=== PATIENT | male | born 1940 | race African-American/Black ===

== ENCOUNTER 2019-03-22 19:52 | Inpatient (IN) | payer MEDICARE, MEDICAID ==
[~2019-03-22] VITALS: Ht 165.1 cm; Wt 101.2 kg
[~2019-03-22 19:52] MED LIST: AMLO5TAB4 PO; FURO-152 PO; INSU3INS8 SQ; POTA10TA15 PO; ROSU20TA2 PO
[2019-03-22] MEDS ORDERED: MORPHINE SULFATE 4 MG/ML CPJ (NOT FOR IM USE) IV ONE (22:45)
[2019-03-22] MEDS ORDERED: VISCOUS LIDOCAINE 2% 15 ML UDC MM ONE (22:45)
[2019-03-22 23:06] LABS: BASOPHILS % 0.5 % (0.0-2.0); EOSINOPHILS % 0.2 % (0.0-5.0); HEMATOCRIT. 40.7 % (42.0-52.0); HEMOGLOBIN. 12.9 g/dL (14.0-18.0); LYMPHOCYTES % 8.2 % (20.0-50.0); MEAN CORPUSCULAR VOLUME 75.8 fL (80.0-94.0); MEAN PLATELET VOLUME 8.6 fl (7.4-10.4); MONOCYTES % 7.1 % (2.0-8.0); PLATELET 174 x1000/uL (130-400); RED BLOOD CELL COUNT 5.37 mill/uL (4.7-6.1); RED CELL DISTRIBUTION WIDTH 13.5 % (11.6-14.6)
[2019-03-22 23:11] LABS: CHLORIDE 110 mEq/L (98-107)
[2019-03-22 23:15] LABS: PROTHROMBIN TIME 10.6 sec (9.6-11.0)
[2019-03-22] MEDS ORDERED: NA PHOS,M-B/NA PHOS,DI-BA ENEMA 118ML PR ONE (23:30)
[2019-03-22] MEDS ORDERED: METRONIDAZOLE 500 MG PREMIX 100 ML IV SCH (23:45)
[2019-03-22] MEDS ORDERED: LEVOFLOXACIN 750MG PREMIX 150 ML IV SCH (23:45)
[2019-03-23] MEDS ORDERED: BISACODYL 10MG SUPP PR ONE (04:15)
[2019-03-23 04:25] LABS: CLARITY URINE CLEAR (CLEAR); COLOR URINE YELLOW (YELLOW); KETONES URINE NEGATIVE (NEGATIVE); LEUKOCYTE ESTERASE URINE NEGATIVE (NEGATIVE); NITRITE URINE NEGATIVE (NEGATIVE); OCCULT BLOOD URINE NEGATIVE (NEGATIVE); PH URINE 7.5 (4.5-8.0); PROTEIN URINE 3+ (NEGATIVE); SPECIFIC GRAVITY URINE 1.014 (1.005-1.030); UROBILINOGEN URINE 0.2 E.U./dL (0.2-1.0)
[2019-03-23] MEDS ORDERED: CLONIDINE 0.1MG TABLET PO SCH (04:30)
[2019-03-23] MEDS ORDERED: DEXTROSE 50% WATER 50ML SYRINGE IV PRN (05:30)
[2019-03-23] MEDS ORDERED: MAGNESIUM HYDROXIDE 400MG/5ML 30ML UDC PO PRN (05:30)
[2019-03-23] MEDS ORDERED: ENOXAPARIN 40MG/0.4ML SYR SUBCUT SCH (05:30)
[2019-03-23] MEDS ORDERED: GUAIFENESIN 200MG/10ML SUGAR FREE UDC PO PRN (05:30)
[2019-03-23] MEDS: SODIUM CHLORIDE 0.9% 1,000 ML IV SCH ×2 (05:40→16:00)
[2019-03-23] MEDS: LACTULOSE 20G/30ML UDC PO SCH ×3 (05:40→23:10)
[2019-03-23] MEDS: INSULIN LISPRO 100 UNITS/ML SUBCUT SCH ×3 (08:20→20:31)
[2019-03-23] MEDS: BLOOD SUGAR DIAGNOSTIC STRIP TEST SCH ×4 (09:00→20:27)
[2019-03-23] MEDS: AMLODIPINE 5MG TABLET PO SCH ×2 (10:21→20:27)
[2019-03-23 13:18] VITALS: BP 156/62
[2019-03-23] MEDS: ENOXAPARIN 40MG/0.4ML SYR SUBCUT SCH (15:22)
[2019-03-23 20:00] VITALS: BP 153/75
[2019-03-23] MEDS: ACETAMINOPHEN 325MG TABLET PO PRN (20:27)
[2019-03-23] MEDS ORDERED: SENNOSIDES 8.6MG TABLET PO PRN (21:00)
[2019-03-24] VITALS: BP 180/87
[2019-03-24] MEDS ORDERED: SODIUM POLYSTYRENE SULFONATE 15 G/60 ML BOT PO SCH
[2019-03-24] MEDS: CLONIDINE 0.1MG TABLET PO PRN ×2 (00:56→14:03)
[2019-03-24] MEDS: SODIUM CHLORIDE 0.9% 1,000 ML IV SCH ×3 (00:56→21:42)
[2019-03-24 04:00] VITALS: BP 117/66
[2019-03-24] MEDS: LACTULOSE 20G/30ML UDC PO SCH ×3 (05:55→21:41)
[2019-03-24] MEDS: BLOOD SUGAR DIAGNOSTIC STRIP TEST SCH ×4 (07:31→21:28)
[2019-03-24 08:00] VITALS: BP 132/51
[2019-03-24] MEDS: AMLODIPINE 5MG TABLET PO SCH ×2 (09:10→20:40)
[2019-03-24] MEDS: DIPHENHYDRAMINE 50MG/ML VIAL IV PRN (09:10)
[2019-03-24] MEDS: MAGNESIUM/ALUMINUM HYDROXIDE/SIMETHICONE 30ML UDC PO PRN (09:10)
[2019-03-24 09:11] LABS: HEMATOCRIT. 38.7 % (42.0-52.0); MEAN CORPUSCULAR HEMOGLOBIN 23.9 pg (28.0-32.0); MEAN CORPUSCULAR VOLUME 76.6 fL (80.0-94.0); MEAN PLATELET VOLUME 8.8 fl (7.4-10.4); PLATELET 156 x1000/uL (130-400); RED BLOOD CELL COUNT 5.05 mill/uL (4.7-6.1); RED CELL DISTRIBUTION WIDTH 13.1 % (11.6-14.6)
[2019-03-24 09:16] LABS: PHOSPHORUS 3.4 mg/dL (2.5-4.9)
[2019-03-24] MEDS: INSULIN LISPRO 100 UNITS/ML SUBCUT SCH ×4 (09:20→21:37)
[2019-03-24 12:00] VITALS: BP 105/53
[2019-03-24] MEDS: ENOXAPARIN 40MG/0.4ML SYR SUBCUT SCH (14:04)
[2019-03-24 16:00] VITALS: BP 141/60
[2019-03-24 20:00] VITALS: BP 120/63
[2019-03-24] MEDS: ACETAMINOPHEN 325MG TABLET PO PRN (20:40)
[2019-03-25] VITALS: BP 110/63
[2019-03-25] MEDS: DIPHENHYDRAMINE 50MG/ML VIAL IV PRN (02:19)
[2019-03-25] MEDS: ACETAMINOPHEN 325MG TABLET PO PRN ×2 (02:19→06:23)
[2019-03-25] MEDS: MAGNESIUM/ALUMINUM HYDROXIDE/SIMETHICONE 30ML UDC PO PRN (02:27)
[2019-03-25 04:00] VITALS: BP 139/66
[2019-03-25] MEDS: LACTULOSE 20G/30ML UDC PO SCH ×3 (05:25→21:37)
[2019-03-25 06:07] LABS: BASOPHILS % 0.1 % (0.0-2.0); EOSINOPHILS % 1.2 % (0.0-5.0); HEMATOCRIT. 40.6 % (42.0-52.0); HEMOGLOBIN. 12.6 g/dL (14.0-18.0); LYMPHOCYTES % 11.7 % (20.0-50.0); MEAN CORPUSCULAR HEMOGLOBIN 23.7 pg (28.0-32.0); MEAN CORPUSCULAR VOLUME 76.2 fL (80.0-94.0); MEAN PLATELET VOLUME 9.4 fl (7.4-10.4); MONOCYTES % 8.5 % (2.0-8.0); NEUTROPHILS % 78.5 % (40.0-76.0); PLATELET 166 x1000/uL (130-400); RED BLOOD CELL COUNT 5.33 mill/uL (4.7-6.1); RED CELL DISTRIBUTION WIDTH 13.6 % (11.6-14.6)
[2019-03-25] MEDS: BLOOD SUGAR DIAGNOSTIC STRIP TEST SCH ×4 (06:29→21:37)
[2019-03-25 06:35] LABS: CHLORIDE 110 mEq/L (98-107)
[2019-03-25] MEDS: INSULIN LISPRO 100 UNITS/ML SUBCUT SCH ×4 (06:37→21:00)
[2019-03-25 06:44] LABS: PHOSPHORUS 4.3 mg/dL (2.5-4.9)
[2019-03-25 08:00] VITALS: BP 156/80
[2019-03-25] MEDS: AMLODIPINE 5MG TABLET PO SCH ×2 (08:23→21:35)
[2019-03-25] MEDS: SODIUM CHLORIDE 0.9% 1,000 ML IV SCH ×3 (08:23→23:32)
[2019-03-25] MEDS ORDERED: NASOI BOTHNSTRLS (09:45)
[2019-03-25] MEDS ORDERED: NEBI20TA2 MT (09:45)
[2019-03-25] MEDS ORDERED: LOSA1TAB34 MT (09:45)
[2019-03-25] MEDS ORDERED: INSU100I33 SQ (09:45)
[2019-03-25] MEDS ORDERED: VIT1TABL86 MT (09:45)
[2019-03-25] MEDS ORDERED: POTASSIUM CHLORIDE 20MEQ TABLET SR PO NR (11:30)
[2019-03-25 12:00] VITALS: BP 130/53
[2019-03-25] MEDS: ONDANSETRON HCL 4MG/2ML INJ IV PRN (12:16)
[2019-03-25] MEDS: ENOXAPARIN 40MG/0.4ML SYR SUBCUT SCH (13:43)
[2019-03-25] MEDS ORDERED: NA PHOS,M-B/NA PHOS,DI-BA ENEMA 118ML PR NR (14:45)
[2019-03-25 16:00] VITALS: BP 129/79
[2019-03-25] MEDS: PANTOPRAZOLE SODIUM 40 MG/VIAL IV SCH (16:50)
[2019-03-25 17:16] LABS: PLATELET ESTIMATE NORMAL
[2019-03-25 20:00] VITALS: BP 135/68
[2019-03-26] VITALS: BP 122/73
[2019-03-26 04:00] VITALS: BP 140/64
[2019-03-26] MEDS: LACTULOSE 20G/30ML UDC PO SCH ×3 (06:04→22:39)
[2019-03-26] MEDS: SODIUM CHLORIDE 0.9% 1,000 ML IV SCH ×2 (06:05→13:31)
[2019-03-26 06:12] LABS: BASOPHILS % 0.3 % (0.0-2.0); EOSINOPHILS % 0.5 % (0.0-5.0); HEMATOCRIT. 39.5 % (42.0-52.0); HEMOGLOBIN. 12.3 g/dL (14.0-18.0); LYMPHOCYTES % 7.4 % (20.0-50.0); MEAN CORPUSCULAR HEMOGLOBIN 23.9 pg (28.0-32.0); MEAN CORPUSCULAR VOLUME 76.3 fL (80.0-94.0); MEAN PLATELET VOLUME 8.9 fl (7.4-10.4); NEUTROPHILS % 85.8 % (40.0-76.0); PLATELET 185 x1000/uL (130-400); RED BLOOD CELL COUNT 5.17 mill/uL (4.7-6.1); RED CELL DISTRIBUTION WIDTH 13.5 % (11.6-14.6)
[2019-03-26 06:21] LABS: CHLORIDE 112 mEq/L (98-107)
[2019-03-26 06:39] LABS: PHOSPHORUS 4.7 mg/dL (2.5-4.9)
[2019-03-26 08:00] VITALS: BP 135/68
[2019-03-26] MEDS: AMLODIPINE 5MG TABLET PO SCH ×2 (09:00→22:39)
[2019-03-26] MEDS: PANTOPRAZOLE SODIUM 40 MG/VIAL IV SCH (09:01)
[2019-03-26] MEDS: INSULIN LISPRO 100 UNITS/ML SUBCUT SCH ×4 (09:12→21:00)
[2019-03-26 12:00] VITALS: BP 116/68
[2019-03-26] MEDS: BLOOD SUGAR DIAGNOSTIC STRIP TEST SCH ×3 (12:23→21:00)
[2019-03-26] MEDS: ENOXAPARIN 40MG/0.4ML SYR SUBCUT SCH (13:31)
[2019-03-26 16:00] VITALS: BP 127/63
[2019-03-26 20:00] VITALS: BP 135/63
[2019-03-27] VITALS: BP 135/69
[2019-03-27 04:00] VITALS: BP 143/77
[2019-03-27] MEDS: ONDANSETRON HCL 4MG/2ML INJ IV PRN (05:49)
[2019-03-27] MEDS: LACTULOSE 20G/30ML UDC PO SCH ×3 (05:57→21:30)
[2019-03-27 07:12] LABS: BASOPHILS % 0.2 % (0.0-2.0); EOSINOPHILS % 0.1 % (0.0-5.0); HEMATOCRIT. 39.2 % (42.0-52.0); HEMOGLOBIN. 12.3 g/dL (14.0-18.0); LYMPHOCYTES % 8.8 % (20.0-50.0); MEAN CORPUSCULAR HEMOGLOBIN 23.9 pg (28.0-32.0); MEAN CORPUSCULAR VOLUME 76.1 fL (80.0-94.0); MEAN PLATELET VOLUME 9.5 fl (7.4-10.4); MONOCYTES % 12.1 % (2.0-8.0); NEUTROPHILS % 78.8 % (40.0-76.0); PLATELET 220 x1000/uL (130-400); RED BLOOD CELL COUNT 5.16 mill/uL (4.7-6.1); RED CELL DISTRIBUTION WIDTH 13.3 % (11.6-14.6)
[2019-03-27] MEDS: BLOOD SUGAR DIAGNOSTIC STRIP TEST SCH ×4 (07:20→21:00)
[2019-03-27 08:00] VITALS: BP 140/53
[2019-03-27] MEDS: PANTOPRAZOLE SODIUM 40 MG/VIAL IV SCH (09:05)
[2019-03-27] MEDS: AMLODIPINE 5MG TABLET PO SCH ×2 (09:05→21:00)
[2019-03-27] MEDS: INSULIN LISPRO 100 UNITS/ML SUBCUT SCH ×4 (09:22→21:00)
[2019-03-27] MEDS ORDERED: NA PHOS,M-B/NA PHOS,DI-BA ENEMA 118ML PR ONE (11:30)
[2019-03-27 12:00] VITALS: BP 137/60
[2019-03-27] MEDS: ENOXAPARIN 40MG/0.4ML SYR SUBCUT SCH (13:01)
[2019-03-27] MEDS: SODIUM CHLORIDE 0.9% 1,000 ML IV SCH (13:03)
[2019-03-27 16:00] VITALS: BP 141/59
[2019-03-27] MEDS: BISACODYL 10MG SUPP PR PRN ×2 (18:59→22:57)
[2019-03-27 20:00] VITALS: BP 137/63
[2019-03-27] MEDS: POTASSIUM CHLORIDE INJ 10 MEQ in SODIUM CHLORIDE 0.9% 1,000 ML IV SCH (22:58)
[2019-03-28] VITALS: BP 98/50
[2019-03-28 04:00] VITALS: BP 105/59
[2019-03-28] MEDS: BISACODYL 10MG SUPP PR PRN (04:04)
[2019-03-28] MEDS: LACTULOSE 20G/30ML UDC PO SCH ×3 (05:34→21:34)
[2019-03-28] MEDS: BLOOD SUGAR DIAGNOSTIC STRIP TEST SCH ×4 (06:11→21:11)
[2019-03-28] MEDS: INSULIN LISPRO 100 UNITS/ML SUBCUT SCH ×4 (06:12→21:00)
[2019-03-28] MEDS: AMLODIPINE 5MG TABLET PO SCH ×2 (09:00→21:00)
[2019-03-28] MEDS: PANTOPRAZOLE SODIUM 40 MG/VIAL IV SCH (09:41)
[2019-03-28] MEDS: POTASSIUM CHLORIDE INJ 10 MEQ in SODIUM CHLORIDE 0.9% 1,000 ML IV SCH ×2 (09:43→21:13)
[2019-03-28] MEDS: ENOXAPARIN 40MG/0.4ML SYR SUBCUT SCH (13:57)
[2019-03-28] MEDS: BISACODYL 10MG SUPP PR SCH ×3 (17:30→23:29)
[2019-03-28 20:00] VITALS: BP 145/60
[2019-03-28] MEDS ORDERED: MINERAL OIL ENEMA 133ML PR NR (21:00)
[2019-03-29] VITALS: BP 116/60
[2019-03-29 04:00] VITALS: BP 104/67
[2019-03-29] MEDS: LACTULOSE 20G/30ML UDC PO SCH ×3 (06:00→23:56)
[2019-03-29] MEDS: BISACODYL 10MG SUPP PR SCH ×4 (06:41→17:23)
[2019-03-29] MEDS: POTASSIUM CHLORIDE INJ 10 MEQ in SODIUM CHLORIDE 0.9% 1,000 ML IV SCH ×2 (06:42→17:23)
[2019-03-29] MEDS: BLOOD SUGAR DIAGNOSTIC STRIP TEST SCH ×4 (06:43→21:15)
[2019-03-29] MEDS: INSULIN LISPRO 100 UNITS/ML SUBCUT SCH ×4 (06:45→21:00)
[2019-03-29 08:00] VITALS: BP 104/56
[2019-03-29] MEDS: AMLODIPINE 5MG TABLET PO SCH ×2 (09:00→21:00)
[2019-03-29] MEDS: PANTOPRAZOLE SODIUM 40 MG/VIAL IV SCH (09:22)
[2019-03-29 12:00] VITALS: BP 114/55
[2019-03-29] MEDS: ENOXAPARIN 40MG/0.4ML SYR SUBCUT SCH (13:27)
[2019-03-29 16:00] VITALS: BP 165/71
[2019-03-29] MEDS: SORBITOL 70% SOLN 30ML PO SCH ×2 (17:22→23:54)
[2019-03-29 20:00] VITALS: BP 174/94
[2019-03-29] MEDS ORDERED: POTASSIUM CHLORIDE INJ 20 MEQ in DEXT 5%/0.9% NACL 1,000 ML IV SCH (21:00)
[2019-03-30] VITALS: BP 108/53
[2019-03-30 04:00] VITALS: BP 145/64
[2019-03-30] MEDS: SORBITOL 70% SOLN 30ML PO SCH ×3 (05:51→21:48)
[2019-03-30] MEDS: BLOOD SUGAR DIAGNOSTIC STRIP TEST SCH ×4 (06:06→21:45)
[2019-03-30] MEDS: INSULIN LISPRO 100 UNITS/ML SUBCUT SCH ×4 (06:07→21:00)
[2019-03-30] MEDS: LACTULOSE 20G/30ML UDC PO SCH ×3 (06:07→21:46)
[2019-03-30 08:00] VITALS: BP 122/73
[2019-03-30] MEDS ORDERED: POTASSIUM CHLORIDE 20MEQ/PACKET PO ONE (08:15)
[2019-03-30] MEDS ORDERED: KCL 20MEQ/100ML PREMIX 100 ML IV SCH (09:00)
[2019-03-30] MEDS: PANTOPRAZOLE SODIUM 40 MG/VIAL IV SCH (09:49)
[2019-03-30] MEDS: AMLODIPINE 5MG TABLET PO SCH ×2 (09:51→21:44)
[2019-03-30 10:10] LABS: BASOPHILS % 0.2 % (0.0-2.0); EOSINOPHILS % 1.3 % (0.0-5.0); HEMATOCRIT. 38.7 % (42.0-52.0); HEMOGLOBIN. 12.5 g/dL (14.0-18.0); LYMPHOCYTES % 10.7 % (20.0-50.0); MEAN CORPUSCULAR HEMOGLOBIN 24.5 pg (28.0-32.0); MEAN CORPUSCULAR VOLUME 76.1 fL (80.0-94.0); MONOCYTES % 14.3 % (2.0-8.0); NEUTROPHILS % 73.5 % (40.0-76.0); PLATELET 216 x1000/uL (130-400); RED BLOOD CELL COUNT 5.09 mill/uL (4.7-6.1); RED CELL DISTRIBUTION WIDTH 14.1 % (11.6-14.6)
[2019-03-30 12:00] VITALS: BP 134/71
[2019-03-30] MEDS: ENOXAPARIN 40MG/0.4ML SYR SUBCUT SCH (14:21)
[2019-03-30 16:00] VITALS: BP 126/69
[2019-03-30 20:00] VITALS: BP 150/63
[2019-03-30] MEDS: DEXT 5% WATER + KCL 20MEQ/L 1,000 ML IV SCH (23:30)
[2019-03-31] VITALS: BP 133/68
[2019-03-31 04:00] VITALS: BP 133/70
[2019-03-31] MEDS: LACTULOSE 20G/30ML UDC PO SCH ×2 (06:13→13:38)
[2019-03-31] MEDS: SORBITOL 70% SOLN 30ML PO SCH ×2 (06:13→13:44)
[2019-03-31] MEDS: BLOOD SUGAR DIAGNOSTIC STRIP TEST SCH ×4 (06:13→20:51)
[2019-03-31] MEDS: KETOROLAC 30MG/ML VIAL IV PRN ×2 (07:06→12:41)
[2019-03-31 07:10] LABS: BASOPHILS % 0.3 % (0.0-2.0); EOSINOPHILS % 1.3 % (0.0-5.0); HEMATOCRIT. 41.9 % (42.0-52.0); HEMOGLOBIN. 13.1 g/dL (14.0-18.0); LYMPHOCYTES % 10.9 % (20.0-50.0); MEAN CORPUSCULAR HEMOGLOBIN 23.7 pg (28.0-32.0); MEAN CORPUSCULAR VOLUME 75.7 fL (80.0-94.0); MEAN PLATELET VOLUME 8.3 fl (7.4-10.4); MONOCYTES % 11.2 % (2.0-8.0); NEUTROPHILS % 76.3 % (40.0-76.0); PLATELET 231 x1000/uL (130-400); RED BLOOD CELL COUNT 5.54 mill/uL (4.7-6.1); RED CELL DISTRIBUTION WIDTH 13.9 % (11.6-14.6)
[2019-03-31] MEDS: INSULIN LISPRO 100 UNITS/ML SUBCUT SCH ×4 (07:50→21:00)
[2019-03-31] MEDS: AMLODIPINE 5MG TABLET PO SCH ×2 (09:00→20:50)
[2019-03-31] MEDS: PANTOPRAZOLE SODIUM 40 MG/VIAL IV SCH (09:45)
[2019-03-31] MEDS ORDERED: POTASSIUM CHLORIDE INJ 40 MEQ in DEXT 5% WATER 500 ML IV SCH (10:00)
[2019-03-31] MEDS: DEXT 5% WATER + KCL 20MEQ/L 1,000 ML IV SCH (10:05)
[2019-03-31] MEDS: DIPHENHYDRAMINE 50MG/ML VIAL IV PRN ×2 (12:42→22:20)
[2019-03-31] MEDS: ENOXAPARIN 40MG/0.4ML SYR SUBCUT SCH (13:39)
[2019-03-31 20:00] VITALS: BP 137/74
[2019-04-01] VITALS: BP 106/65
[2019-04-01] MEDS: KETOROLAC 30MG/ML VIAL IV PRN ×3 (00:46→15:39)
[2019-04-01] MEDS: DEXT 5% WATER + KCL 20MEQ/L 1,000 ML IV SCH (00:51)
[2019-04-01 04:00] VITALS: BP 127/70
[2019-04-01] MEDS: BLOOD SUGAR DIAGNOSTIC STRIP TEST SCH ×4 (06:20→21:43)
[2019-04-01 07:26] LABS: BASOPHILS % 0.4 % (0.0-2.0); HEMOGLOBIN. 12.6 g/dL (14.0-18.0); LYMPHOCYTES % 11.8 % (20.0-50.0); MEAN CORPUSCULAR HEMOGLOBIN 23.7 pg (28.0-32.0); MEAN PLATELET VOLUME 8.8 fl (7.4-10.4); MONOCYTES % 8.2 % (2.0-8.0); NEUTROPHILS % 75.6 % (40.0-76.0); PLATELET 231 x1000/uL (130-400); RED BLOOD CELL COUNT 5.33 mill/uL (4.7-6.1); RED CELL DISTRIBUTION WIDTH 14.1 % (11.6-14.6)
[2019-04-01 08:33] LABS: PHOSPHORUS 2.4 mg/dL (2.5-4.9)
[2019-04-01] MEDS: PANTOPRAZOLE SODIUM 40 MG/VIAL IV SCH (09:18)
[2019-04-01] MEDS: INSULIN LISPRO 100 UNITS/ML SUBCUT SCH ×4 (09:22→21:00)
[2019-04-01] MEDS: AMLODIPINE 5MG TABLET PO SCH ×2 (09:26→21:00)
[2019-04-01] MEDS ORDERED: POTASSIUM CHLORIDE INJ 60 MEQ in DEXT 5% WATER 500 ML IV NR (10:30)
[2019-04-01 12:00] VITALS: BP 124/79
[2019-04-01] MEDS ORDERED: DIATR MEGLU/DIATRIZOATE SOLN 120ML ONE (12:47)
[2019-04-01] MEDS: ENOXAPARIN 40MG/0.4ML SYR SUBCUT SCH (14:00)
[2019-04-01 16:00] VITALS: BP 111/60
[2019-04-01 20:00] VITALS: BP 103/49
[2019-04-02] VITALS: BP 148/58
[2019-04-02 04:00] VITALS: BP 106/50
[2019-04-02] MEDS: BLOOD SUGAR DIAGNOSTIC STRIP TEST SCH ×4 (06:21→21:29)
[2019-04-02] MEDS: INSULIN LISPRO 100 UNITS/ML SUBCUT SCH ×4 (07:50→21:00)
[2019-04-02 08:00] VITALS: BP 131/59
[2019-04-02] MEDS: AMLODIPINE 5MG TABLET PO SCH ×2 (08:57→20:57)
[2019-04-02] MEDS: PANTOPRAZOLE SODIUM 40 MG/VIAL IV SCH (08:57)
[2019-04-02 12:00] VITALS: BP 127/57
[2019-04-02] MEDS: ENOXAPARIN 40MG/0.4ML SYR SUBCUT SCH (15:53)
[2019-04-02 16:00] VITALS: BP 148/68
[2019-04-02 20:00] VITALS: BP 110/61
[2019-04-03] VITALS: BP 114/56
[2019-04-03] MEDS: DEXT 5% WATER + KCL 20MEQ/L 1,000 ML IV SCH (03:21)
[2019-04-03 04:00] VITALS: BP 115/66
[2019-04-03 06:20] LABS: BASOPHILS % 0.4 % (0.0-2.0); EOSINOPHILS % 2.9 % (0.0-5.0); HEMATOCRIT. 41.9 % (42.0-52.0); HEMOGLOBIN. 12.9 g/dL (14.0-18.0); LYMPHOCYTES % 10.2 % (20.0-50.0); MEAN CORPUSCULAR HEMOGLOBIN 23.8 pg (28.0-32.0); MEAN CORPUSCULAR VOLUME 77.4 fL (80.0-94.0); MEAN PLATELET VOLUME 8.9 fl (7.4-10.4); MONOCYTES % 6.5 % (2.0-8.0); PLATELET 216 x1000/uL (130-400); RED BLOOD CELL COUNT 5.42 mill/uL (4.7-6.1); RED CELL DISTRIBUTION WIDTH 14.4 % (11.6-14.6)
[2019-04-03] MEDS: BLOOD SUGAR DIAGNOSTIC STRIP TEST SCH ×4 (07:28→21:00)
[2019-04-03] MEDS: INSULIN LISPRO 100 UNITS/ML SUBCUT SCH ×4 (07:50→21:07)
[2019-04-03] MEDS: PANTOPRAZOLE SODIUM 40 MG/VIAL IV SCH (09:32)
[2019-04-03] MEDS: AMLODIPINE 5MG TABLET PO SCH ×2 (09:33→21:11)
[2019-04-03] MEDS: ENOXAPARIN 40MG/0.4ML SYR SUBCUT SCH (13:59)
[2019-04-03 20:00] VITALS: BP 126/56
[2019-04-04] VITALS: BP 140/51
[2019-04-04 04:00] VITALS: BP 133/53
[2019-04-04 06:56] LABS: BASOPHILS % 0.2 % (0.0-2.0); EOSINOPHILS % 2.9 % (0.0-5.0); HEMATOCRIT. 36.5 % (42.0-52.0); HEMOGLOBIN. 11.5 g/dL (14.0-18.0); LYMPHOCYTES % 13.5 % (20.0-50.0); MEAN CORPUSCULAR HEMOGLOBIN 23.7 pg (28.0-32.0); MEAN CORPUSCULAR VOLUME 75.4 fL (80.0-94.0); MEAN PLATELET VOLUME 8.8 fl (7.4-10.4); MONOCYTES % 8.5 % (2.0-8.0); NEUTROPHILS % 74.9 % (40.0-76.0); PLATELET 220 x1000/uL (130-400); RED BLOOD CELL COUNT 4.84 mill/uL (4.7-6.1); RED CELL DISTRIBUTION WIDTH 14.1 % (11.6-14.6)
[2019-04-04] MEDS: INSULIN LISPRO 100 UNITS/ML SUBCUT SCH ×4 (07:50→21:00)
[2019-04-04] MEDS: BLOOD SUGAR DIAGNOSTIC STRIP TEST SCH ×4 (07:59→20:29)
[2019-04-04 08:00] VITALS: BP 124/78
[2019-04-04 08:12] LABS: PHOSPHORUS 3.1 mg/dL (2.5-4.9)
[2019-04-04] MEDS: PANTOPRAZOLE SODIUM 40 MG/VIAL IV SCH (09:03)
[2019-04-04] MEDS: AMLODIPINE 5MG TABLET PO SCH ×2 (09:03→20:29)
[2019-04-04] MEDS: DEXT 5% WATER + KCL 20MEQ/L 1,000 ML IV SCH ×2 (09:13→20:36)
[2019-04-04 12:00] VITALS: BP 127/67
[2019-04-04] MEDS: ENOXAPARIN 40MG/0.4ML SYR SUBCUT SCH (14:58)
[2019-04-04 16:00] VITALS: BP 125/76
[2019-04-04 20:00] VITALS: BP 137/64
[2019-04-05] VITALS: BP 157/67
[2019-04-05] MEDS: METOCLOPRAMIDE HCL 10MG TABLET PO SCH ×5 (00:10→23:14)
[2019-04-05 04:00] VITALS: BP 98/58
[2019-04-05] MEDS: DEXT 5% WATER + KCL 20MEQ/L 1,000 ML IV SCH (05:32)
[2019-04-05 07:01] LABS: BASOPHILS % 0.3 % (0.0-2.0); HEMATOCRIT. 35.4 % (42.0-52.0); HEMOGLOBIN. 11.3 g/dL (14.0-18.0); LYMPHOCYTES % 16.9 % (20.0-50.0); MEAN CORPUSCULAR HEMOGLOBIN 24.1 pg (28.0-32.0); MEAN CORPUSCULAR VOLUME 75.9 fL (80.0-94.0); MEAN PLATELET VOLUME 8.7 fl (7.4-10.4); MONOCYTES % 8.9 % (2.0-8.0); NEUTROPHILS % 70.9 % (40.0-76.0); PLATELET 212 x1000/uL (130-400); RED BLOOD CELL COUNT 4.67 mill/uL (4.7-6.1); RED CELL DISTRIBUTION WIDTH 14.1 % (11.6-14.6)
[2019-04-05] MEDS: INSULIN LISPRO 100 UNITS/ML SUBCUT SCH ×4 (07:33→20:55)
[2019-04-05] MEDS: BLOOD SUGAR DIAGNOSTIC STRIP TEST SCH ×4 (07:33→21:43)
[2019-04-05 08:00] VITALS: BP 117/57
[2019-04-05] MEDS: CITRIC ACID/SODIUM CITRATE SOLN 15ML UDC PO SCH ×3 (09:03→17:32)
[2019-04-05] MEDS: PANTOPRAZOLE SODIUM 40 MG/VIAL IV SCH (09:04)
[2019-04-05] MEDS: AMLODIPINE 5MG TABLET PO SCH ×2 (09:04→21:50)
[2019-04-05 12:00] VITALS: BP 104/55
[2019-04-05] MEDS: DEXT 5%/0.45% NACL KCL 10MEQ/L 1,000 ML IV SCH (15:27)
[2019-04-05] MEDS: ENOXAPARIN 40MG/0.4ML SYR SUBCUT SCH (15:27)
[2019-04-05 16:00] VITALS: BP 112/53
[2019-04-05 20:00] VITALS: BP 138/68
[2019-04-06] VITALS: BP 123/93
[2019-04-06 04:00] VITALS: BP 111/60
[2019-04-06] MEDS: METOCLOPRAMIDE HCL 10MG TABLET PO SCH ×3 (06:33→18:22)
[2019-04-06 06:39] LABS: BASOPHILS % 0.1 % (0.0-2.0); EOSINOPHILS % 3.9 % (0.0-5.0); HEMATOCRIT. 35.1 % (42.0-52.0); HEMOGLOBIN. 11.2 g/dL (14.0-18.0); LYMPHOCYTES % 13.5 % (20.0-50.0); MEAN CORPUSCULAR HEMOGLOBIN 24.1 pg (28.0-32.0); MEAN PLATELET VOLUME 8.8 fl (7.4-10.4); MONOCYTES % 9.8 % (2.0-8.0); NEUTROPHILS % 72.7 % (40.0-76.0); PLATELET 226 x1000/uL (130-400); RED BLOOD CELL COUNT 4.67 mill/uL (4.7-6.1); RED CELL DISTRIBUTION WIDTH 14.1 % (11.6-14.6)
[2019-04-06] MEDS: DEXT 5%/0.45% NACL KCL 10MEQ/L 1,000 ML IV SCH ×3 (07:00→23:00)
[2019-04-06 08:00] VITALS: BP 134/53
[2019-04-06 08:07] LABS: PHOSPHORUS 3.5 mg/dL (2.5-4.9)
[2019-04-06] MEDS: BLOOD SUGAR DIAGNOSTIC STRIP TEST SCH ×4 (08:07→21:41)
[2019-04-06] MEDS: CITRIC ACID/SODIUM CITRATE SOLN 15ML UDC PO SCH ×3 (08:08→18:22)
[2019-04-06] MEDS: AMLODIPINE 5MG TABLET PO SCH ×2 (08:08→21:31)
[2019-04-06] MEDS: INSULIN LISPRO 100 UNITS/ML SUBCUT SCH ×4 (08:35→21:41)
[2019-04-06] MEDS: PANTOPRAZOLE SODIUM 40 MG/VIAL IV SCH (09:00)
[2019-04-06 12:00] VITALS: BP 102/58
[2019-04-06] MEDS: ACETAMINOPHEN 325MG TABLET PO PRN ×2 (14:18→19:53)
[2019-04-06] MEDS: ENOXAPARIN 40MG/0.4ML SYR SUBCUT SCH (14:19)
[2019-04-06 16:00] VITALS: BP 109/59
[2019-04-06 20:00] VITALS: BP 119/62
[2019-04-07] VITALS: BP 146/60
[2019-04-07] MEDS: METOCLOPRAMIDE HCL 10MG TABLET PO SCH ×4 (01:00→18:56)
[2019-04-07] MEDS: DEXT 5%/0.45% NACL KCL 10MEQ/L 1,000 ML IV SCH ×3 (02:43→21:52)
[2019-04-07 04:00] VITALS: BP 135/69
[2019-04-07] MEDS: BLOOD SUGAR DIAGNOSTIC STRIP TEST SCH ×4 (06:46→21:52)
[2019-04-07] MEDS: AMLODIPINE 5MG TABLET PO SCH ×2 (08:33→21:00)
[2019-04-07] MEDS: CITRIC ACID/SODIUM CITRATE SOLN 15ML UDC PO SCH ×3 (08:33→17:00)
[2019-04-07] MEDS: INSULIN LISPRO 100 UNITS/ML SUBCUT SCH ×4 (08:50→22:03)
[2019-04-07] MEDS: PANTOPRAZOLE SODIUM 40 MG/VIAL IV SCH (08:58)
[2019-04-07] MEDS: ENOXAPARIN 40MG/0.4ML SYR SUBCUT SCH (13:05)
[2019-04-07 20:00] VITALS: BP 111/51
[2019-04-08] VITALS: BP 136/66
[2019-04-08 04:00] VITALS: BP 112/58
[2019-04-08] MEDS: METOCLOPRAMIDE HCL 10MG TABLET PO SCH ×4 (04:27→18:29)
[2019-04-08] MEDS: BLOOD SUGAR DIAGNOSTIC STRIP TEST SCH ×3 (06:32→18:03)
[2019-04-08] MEDS: INSULIN LISPRO 100 UNITS/ML SUBCUT SCH ×3 (06:33→18:53)
[2019-04-08] MEDS: DEXT 5%/0.45% NACL KCL 10MEQ/L 1,000 ML IV SCH ×2 (06:33→15:00)
[2019-04-08 06:44] LABS: BASOPHILS % 0.3 % (0.0-2.0); EOSINOPHILS % 5.5 % (0.0-5.0); HEMATOCRIT. 36.8 % (42.0-52.0); HEMOGLOBIN. 11.7 g/dL (14.0-18.0); LYMPHOCYTES % 12.3 % (20.0-50.0); MEAN CORPUSCULAR HEMOGLOBIN 23.9 pg (28.0-32.0); MEAN CORPUSCULAR VOLUME 75.2 fL (80.0-94.0); MEAN PLATELET VOLUME 8.7 fl (7.4-10.4); MONOCYTES % 8.1 % (2.0-8.0); NEUTROPHILS % 73.8 % (40.0-76.0); PLATELET 241 x1000/uL (130-400); RED BLOOD CELL COUNT 4.89 mill/uL (4.7-6.1); RED CELL DISTRIBUTION WIDTH 14.5 % (11.6-14.6)
[2019-04-08 08:00] VITALS: BP 138/58
[2019-04-08] MEDS: PANTOPRAZOLE SODIUM 40 MG/VIAL IV SCH (09:00)
[2019-04-08] MEDS: AMLODIPINE 5MG TABLET PO SCH ×2 (09:19→19:53)
[2019-04-08] MEDS: CITRIC ACID/SODIUM CITRATE SOLN 15ML UDC PO SCH ×2 (09:19→13:36)
[2019-04-08] MEDS: ENOXAPARIN 40MG/0.4ML SYR SUBCUT SCH (13:37)
[2019-04-08 16:00] VITALS: BP 95/60
[2019-04-08] MEDS: CITRIC ACID/SODIUM CITRATE SOLN 30ML UDC PO SCH ×2 (17:45→18:29)
[2019-04-08 20:19] VITALS: BP 106/49
== END 2019-04-08 21:00 | DRG 388 ==
LOC: ER 19:52 → 6EST 03-23 04:56 → ENRESERV 03-23 12:49
PROVIDERS: ADMIT Internal Medicine; ATTEND Internal Medicine
PROC: 0D9670Z Drainage of Stomach with Drainage Device, Via Natural or Artificial Opening (ICD-10-PCS; principal; 2019-03-27)
DX: K56.0 Paralytic ileus (principal); G93.41 Metabolic encephalopathy; E87.2 Acidosis; N17.9 Acute kidney failure, unspecified; G62.81 Critical illness polyneuropathy; J98.11 Atelectasis; K56.41 Fecal impaction; E87.5 Hyperkalemia; E11.22 Type 2 diabetes mellitus with diabetic chronic kidney disease; I12.9 Hypertensive chronic kidney disease with stage 1 through stage 4 chronic kidney disease, or unspecified chronic kidney disease; E78.00 Pure hypercholesterolemia, unspecified; N18.3 Chronic kidney disease, stage 3 (moderate); H66.41 Suppurative otitis media, unspecified, right ear; R26.9 Unspecified abnormalities of gait and mobility; R33.9 Retention of urine, unspecified; D50.9 Iron deficiency anemia, unspecified; E78.5 Hyperlipidemia, unspecified; E11.51 Type 2 diabetes mellitus with diabetic peripheral angiopathy without gangrene; Z59.0 Homelessness; Z79.899 Other long term (current) drug therapy; Z87.891 Personal history of nicotine dependence; Z95.0 Presence of cardiac pacemaker; Z79.4 Long term (current) use of insulin
CPT/HCPCS: 36415; 71045; 74018; 74176; 80048; 80053; 81003; 82040; 82378; 82436; 82550; 82565; 82570; 82962; 83605; 83735; 83935; 84100; 84300; 85025; 93970; 96365; 97162; 99285; C9113; J1200; J1650; J1815; J1885; J1956; J2270; J2405; J3480; J3490; J7030; J7042; J7060; J8597; Q9963